=== PATIENT | male | born 1960 | race Caucasian/White ===

== ENCOUNTER → 2021-12-04 | Outpatient (CLI) | payer OTHER ==
--- NOTE | 2021-12-04 11:30 | CA ---
Exercise Stress Test Report Name: Timothy Ingram Exam Date: 12/04/2021 09:31 Exam Location: [place] Stress Ht (in): 67 Wt (lb): 240 BSA: 2.18 Ordering Phys: Mingo Bell MD Referring Phys: Ray, Technologist: Chacorta Redman Age: 61 Gender: M : 1960 Procedure CPT: Indications: I25.9 CHRONIC ISCHEMIC HEART DISEASE ICD-10 Codes: Patient History: CP, ELEVATED CHOLESTEROL LEVELS, FAMILY HX OF HEART DISEASE, Medications: ZOCOR, ZEDIA, SYNTHROID, HZTZ Meds past 24 hrs: Pretest Chest Pain: STRESS TEST Timothy Protocol Exercise Duration (min:sec): 09:[address] Depressions (mm): Angina Score: Paiz Score: Resting HR (bpm): 79 Peak HR (bpm): 147 Resting BP (mmHg): 117 / 68 Peak BP (mmHg): 172 / 77 MPHR: 161 Target HR: 137 % MPHR: 91 METS: 10.3 Total Dose: Peak Dose: Atropine: Double Product: 97931 BP Response: Normal Stress Termination: Fatigue Stress Symptoms: Stress Summary: ECG ANALYSIS Resting ECG: Normal sinus with normal axis and intervals. Stress EC mm ST segment upsloping depression in the inferolateral leads that resolved in recovery CONCLUSIONS 1. good exercise tolerance 2. Mildly positive electrocardiographic stress test 3. If clinically indicated an imaging stress test would be helpful. Dr. Susan Velasquez MD (Electronically Signed) Final Date: 04 December 2021 11:29
--- NOTE | 2021-12-04 14:56 | NM ---
EXAMINATION TYPE: NM stress cardiolite complete DATE OF EXAM: 12/04/2021 COMPARISON: NONE HISTORY: I 25.9 TECHNIQUE: After the intravenous administration of 9.7 mCi Tc 99m Sestamibi - Rest images obtained 6 0 minutes post injection. The patient exercised using a KAREN protocol and 1 minute prior to peak e xercise was injected with 25.3 mCi Tc 99m Sestamibi - Stress images obtained 20 minutes post injectio n. FINDINGS: Targeted heart rate was achieved during performance of the study, patient achieved 91% of predicted m aximal heart rate. Review of stress and rest SPECT images demonstrates no distinct perfusion abnormal ity. Gated analysis shows normal wall motion with an estimated left ventricular ejection fraction of 61 %. IMPRESSION: No scintigraphic evidence for reversible ischemia
== END | disposition home or self-care (01) ==
LOC: RADNMMAIN 11-23 08:49
PROVIDERS: ATTEND Internal Medicine
DX: I25.9 Chronic ischemic heart disease, unspecified (principal)
CPT/HCPCS: 93017; 78452; A9500

== ENCOUNTER 2023-11-25 08:57 | Day surgery (SDC) | payer OTHER ==
[2023-11-21 15:56] VITALS: BMI 37.5
[2023-11-25 09:56] VITALS: TEMP 97.3
[2023-11-25 10:07] LABS: Glucose,Whole Blood 88 mg/dL (70-110)
[2023-11-25] MEDS: LACTATED RINGERS 1,000 ML IV SCH (10:07)
[2023-11-25] MEDS: IV FLUID CONTINUATION 1,000 ML IV ONE (10:07)
[2023-11-25] MEDS ORDERED: LIDOCAINE 1% INJ 10MG/ML (20 ML MDV) ONE (11:04)
[2023-11-25] MEDS ORDERED: PROPOFOL 10 MG/ML 20 ML VIAL IV ONE (11:04)
--- NOTE | 2023-11-25 11:25 | P.PCN ---
Date of Procedure: 11/25/23 Procedure(s) Performed: BRIEF HISTORY: Patient is a 62-year-old pleasant white male scheduled for an elective colonoscopy as a part of screening for colon cancer. PROCEDURE PERFORMED: Colonoscopy with snare polypectomy. PREOPERATIVE DIAGNOSIS: Screening for colon cancer. IV sedation per Anesthesia. PROCEDURE: After informed consent was obtained, the patient, was brought into the endoscopy unit. IV sedation was administered by Anesthesia under continuous monitoring. Digital rectal examination was normal. Initially the Olympus CF-160 flexible video colonoscope was then inserted in the rectum, gradually advanced into the cecum without any difficulty. Careful examination was performed as the scope was gradually being withdrawn. Ileocecal valve and the appendiceal orifice were visualized and appeared normal. Prep was excellent. Mucosa of the cecum, ascending colon, transverse colon, descending colon, appeared normal. In the sigmoid colon there were 2 polyps measuring 2 cm pedunculated polyp and 5 mm polyp both of which were removed by snare polypectomy. In the rectum there was a 5 mm polyp removed by snare polypectomy. Retroflexion was performed in the rectum and no lesions were seen. The patient tolerated the procedure well. IMPRESSION: 2 cm pedunculated polyp in the sigmoid colon s/p snare polypectomy 5 mm polyp in the sigmoid colon status post polypectomy 5 mm rectal polyp status post polypectomy RECOMMENDATIONS: Findings of this examination were discussed with the patient as well as his family. He was advised to follow-up with the biopsy results. If the biopsy reveals adenoma he can have repeat colonoscopy in 3 years..
[2023-11-25 11:45] VITALS: PULSE 58; RESP 16
[2023-11-25 11:51] VITALS: BP 122/88
== END 2023-11-25 11:57 | disposition home or self-care (01) ==
LOC: ORWHC2ENDO 08:57
PROVIDERS: ATTEND Internal Medicine Gastroenterology
DX: Z12.11 Encounter for screening for malignant neoplasm of colon (principal); D12.5 Benign neoplasm of sigmoid colon; K62.1 Rectal polyp; G47.33 Obstructive sleep apnea (adult) (pediatric); E07.9 Disorder of thyroid, unspecified; E78.5 Hyperlipidemia, unspecified; F32.A Depression, unspecified; F17.200 Nicotine dependence, unspecified, uncomplicated; Z79.890 Hormone replacement therapy; Z79.899 Other long term (current) drug therapy; Z98.890 Other specified postprocedural states
CPT/HCPCS: 88305; 45385; J2001; J2704